=== PATIENT | male | born 1995 | race Caucasian/White ===

== ENCOUNTER 2017-01-28 18:03 | Emergency (ER) | payer SELFPAY ==
[2017-01-28] MEDS ORDERED: LIDOCAINE 1% 10 ML VIAL INJ ONE (18:12)
[2017-01-28 18:21] VITALS: BP 136/79; TEMP 98.6; O2SAT 97
[2017-01-28] MEDS ORDERED: SULFA/TRIMETH 800/160 (DS) TAB 1 EA TAB PO ONE (18:25)
[2017-01-28] MEDS ORDERED: TETANUS,DIPHTHERIA,PERTUSSIS 1 EA SYG IM ONE (18:25)
--- NOTE | 2017-01-28 18:29 | ED.PDOC ---
History of Present Illness - General Chief Complaint: Laceration Stated Complaint: R great toe laceration Time Seen by Provider: 01/28/17 18:04 Source: patient Exam Limitations: no limitations - History of Present Illness Initial Comments: The patient is a 21-year-old male presenting to the emergency room secondary to a one-inch shear-type laceration to the plantar aspect of the first digit of the right toe. Estimated blood loss prior to arrival approximately 10 cc. The patient believes he cut it on a gena candidate. He is not up-to-date on his vaccines. No other injuries. He does appear to be neurovascularly preserved distally and tendon functions are intact. Close examination of the laceration shows that is not entirely through the level of the skin. There is certainly no tendon laceration. Timing/Duration: momentarily Severity: mild Improving Factors: nothing Worsening Factors: nothing Associated Symptoms: denies symptoms Allergies/Adverse Reactions: Allergies NO KNOWN ALLERGY Allergy (Verified 01/28/17 18:15) Home Medications: Ambulatory Orders Sulfa/Trimeth 800/160 (Ds) Tab [Bactrim DS Tab] 1 ea PO DAILY #10 tab 01/28/17 Review of Systems - Review of Systems Constitutional: States: no symptoms reported EENTM: States: no symptoms reported Respiratory: States: no symptoms reported Cardiology: States: no symptoms reported Gastrointestinal/Abdominal: States: no symptoms reported Genitourinary: States: no symptoms reported Musculoskeletal: States: no symptoms reported Skin: States: see HPI Neurological: States: no symptoms reported Endocrine: States: no symptoms reported All other Systems: No Change from Baseline Past Medical History (General) - Patient Medical History Hx Stroke: No Hx Asthma: Yes Hx Congestive Heart Failure: No Hx Diabetes: No Hx MRSA: No Surgical History: no surgical history - Vaccination History Hx Influenza Vaccination: No - Social History Hx Tobacco Use: Yes - Female History Patient : No Family Medical History - Family History Mother Family History: No Known Living Status: Still Living Physical Exam - Physical Exam General Appearance: Alert, Comfortable, No apparent distress Eye Exam: bilateral normal Ears, Nose, Throat: hearing grossly normal Neck: full range of motion Respiratory: no respiratory distress, no accessory muscle use Cardiovascular/Chest: normal peripheral pulses, no edema Peripheral Pulses: dorsalis pedis,right: 2+, dorsalis pedis,left: 2+, posterior tibialis,right: 2+, posterior tibialis,left: 2+ Gastrointestinal/Abdominal: soft Rectal Exam: deferred Back Exam: normal inspection Extremity: normal range of motion, non-tender, normal inspection - with the exception of the laceration, normal capillary refill 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 The wound is cleaned with 500 cc of sterile saline and hydrogen peroxide. The wound itself is fairly superficial. Pressure is held for hemostasis. No sutures are required. Antibiotic ointment and Band-Aid are used for a dressing. He needs to keep the wound clean and wash with an antibacterial soap at least twice a day. He will be placed on Bactrim daily for 10 days. ER warnings were given. Monitor for any evidence of infection. He is neurovascularly intact at this time. 5 cc of Xylocaine without epinephrine was used for local anesthetic prior to irrigation. Risk and benefits of procedure were explained prior. Departure - Departure Clinical Impression: Accidental laceration Disposition: Discharge to Home or Self Care Condition: Fair Departure Forms: ED Discharge - Pt. Copy, Patient Portal Self Enrollment Instructions: DI for Laceration Repair -- Simple Diet: regular diet Activity: increase activity as tolerated Prescriptions: Sulfa/Trimeth 800/160 (Ds) Tab [Bactrim DS Tab] 1 ea PO DAILY #10 tab Home Medications: Ambulatory Orders Sulfa/Trimeth 800/160 (Ds) Tab [Bactrim DS Tab] 1 ea PO DAILY #10 tab 01/28/17 Additional Instructions: the patient is a 21-year-old male presenting with a 1 inch laceration to the plantar aspect of the first digit of his right foot. The wound is cleaned with 500 cc of sterile saline and hydrogen peroxide. The wound itself is fairly superficial. Pressure is held for hemostasis. No sutures are required. Antibiotic ointment and Band-Aid are used for a dressing. He needs to keep the wound clean and wash with an antibacterial soap at least twice a day. He will be placed on Bactrim daily for 10 days. ER warnings were given. Monitor for any evidence of infection. follow-up with our primary care doctor next week.
[2017-01-28] MEDS ORDERED: NEOMYCIN-BACITRACIN-POLYMYXIN 0.9 GM UD TOP ONE (18:38)
== END 2017-01-28 18:45 | disposition home or self-care (01) ==
LOC: ER 18:03
DX: S91.111A Laceration without foreign body of right great toe without damage to nail, initial encounter (principal); X58.XXXA Exposure to other specified factors, initial encounter; Y92.9 Unspecified place or not applicable